=== PATIENT | male | born 1925 | race Caucasian/White ===

== ENCOUNTER → 2016-12-13 | Outpatient (CLI) | payer MEDICARE ==
[~2016-12-13] MED LIST: ACET-1757 PO; ACET650S12 PR; AMINOPHYLLINE 25 MG/ML, 10ML ONE; ASPI-496 PO; BISA10SU2 PR; BISA5TAB5 PO; CAPT12.52 PO; CHOL100011 PO; DOCU-30 PO; ENOX40SY4 SQ; FURO40TA6 PO; HYDR-3138 PO; IRON100V IV; LEVO75TA5 PO; METO-93 PO; ONDA4SOL2 IV; PANT40TA5 PO; PIPE3.378 IV; POTA10TA11 PO; PRAV20TA2 PO; PROC5TAB40 IV; REGADENOSON 0.4 MG/5 ML SYRINGE ONE; TRAM-28 PO; TRAV2.5D5 EACHEYE; TRAZ50TA18 PO; [UNRECOGNIZED DRUG - CODE] PO; [UNRECOGNIZED DRUG - OTHER] IVF; [UNRECOGNIZED DRUG - REMARK]; [UNRECOGNIZED DRUG - REMARK]
== END | disposition home or self-care (01) ==
LOC: CFH 08:08
PROVIDERS: ATTEND Internal Medicine Cardiovascular Disease
DX: R06.02 Shortness of breath (principal); R07.9 Chest pain, unspecified
CPT/HCPCS: 78452; 93017; A9502; J0280; J2785